=== PATIENT | female | born 1990 | race Two or more races ===

== ENCOUNTER 2018-10-01 05:30 | Inpatient (IN) | payer MEDICAID ==
[~2018-10-01] VITALS: Ht 153.7 cm; Wt 79.0 kg
[2018-10-01 06:06] VITALS: BP 124/83; PULSE 87; RESP 16
[2018-10-01] MEDS ORDERED: PREN-19 PO (06:08)
[2018-10-01] MEDS ORDERED: CALC600T24 PO (06:08)
[2018-10-01] MEDS ORDERED: FERR134T PO (06:08)
[2018-10-01] MEDS ORDERED: LACTATED RINGER'S 1,000 ML IV SCH (08:02)
[2018-10-01] MEDS ORDERED: MISOPROSTOL 200 MCG TAB PR PRN (08:30)
[2018-10-01] MEDS ORDERED: OXYTOCIN 30 UNITS/LR 500 ML IV SCH ×3 (08:30)
[2018-10-01] MEDS ORDERED: OXYTOCIN 30 UNITS/LR 500 ML IV PRN (08:30)
[2018-10-01] MEDS ORDERED: METHYLERGONOVINE 0.2 MG INJ IM PRN (08:30)
[2018-10-01] MEDS ORDERED: CARBOPROST 250 MCG INJ IM PRN (08:30)
[2018-10-01] MEDS ORDERED: BUTORPHANOL 1 MG INJ IV PRN (08:30)
[2018-10-01] MEDS ORDERED: LIDOCAINE 1% (MPF) 30 ML INJ INJ PRN (08:30)
[2018-10-01] MEDS: BUTORPHANOL 2 MG INJ IV PRN (13:47)
--- NOTE | 2018-10-01 15:20 | PREAC ---
Date/Time of Note Date/Time of Note DATE: 10/01/18 TIME: 15: Anesthesia Eval and Record Evaluation Time Pre-Procedure Interview DATE: 10/01/18 TIME: 15:19 Age 28 Sex female NPO: 8 hrs Preoperative diagnosis iup at term Planned procedure labor epidural Past Medical History Past Medical History: None Surgery & Anesthesia Issues No known issue Meds Anticoagulation: No Beta Keshawn within 24 hr: No Reason Beta Keshawn not given: Pt. not on B-Keshawn Reported Medications Vit #76/Iron,Carb/FA (Prenatabs Rx Tablet) 1 Each Tablet, 1 EACH PO DAILY, TAB 10/01/18 Ferrous Sulfate (Iron) 134 Mg Tablet, 134 MG PO DAILY, TAB 10/01/18 Calcium Carbonate* (Calcium Carbonate*) 600 MG Ca Tab, 600 MG PO DAILY, TAB 10/01/18 Current Medications Lactated Ringer's 1,000 ml @ 125 mls/hr Q8H IV Last administered on 10/01/18at 09:52; Admin Dose 125 MLS/HR; Start 10/01/18 at 08:02 Butorphanol Tartrate (Stadol) 1 mg Q2H PRN IV .PAIN; Start 10/01/18 at 08:30 Butorphanol Tartrate (Stadol) 2 mg Q2H PRN IV .PAIN Last administered on 10/01/18at 13:47; Admin Dose 2 MG; Start 10/01/18 at 08:30 Lidocaine (Xylocaine 1% (Mpf)) 30 ml ONCE PRN INJ .EPISIOTOMY; Start 10/01/18 at 08:30 Oxytocin/Lactated Ringer's 500 ml @ 500 mls/hr ONCE POST IV ; Start 10/01/18 at 08:30 Oxytocin/Lactated Ringer's 500 ml @ 125 mls/hr POST IV ; Start 10/01/18 at 08:30 Oxytocin/Lactated Ringer's 500 ml @ 0 mls/hr ONCE PRN IV .VAGINAL BLEEDING; Start 10/01/18 at 08:30 Methylergonovine Maleate (Methergine) 0.2 mg ONCE PRN IM .VAGINAL BLEEDING; Start 10/01/18 at 08:30 Carboprost Tromethamine (Hemabate) 250 mcg ONCE PRN IM .VAGINAL BLEEDING; Start 10/01/18 at 08:30 Misoprostol (Cytotec) 1,000 mcg ONCE PRN CA .VAGINAL BLEEDING; Start 10/01/18 at 08:30 Oxytocin/Lactated Ringer's 500 ml @ 0 mls/hr FOR AUGMENTATION IV Last administered on 10/01/18at 09:54; Admin Dose 1 MLS/HR; Start 10/01/18 at 08:30 Meds reviewed: Yes Allergies Coded Allergies: No Known Allergy (Unverified , 10/01/18) Allergies Reviewed: Yes Labs/Studies Labs Reviewed: Reviewed by anesthesiologist Result Diagram: 10/01/18 0935 Laboratory Tests 10/01/18 09:35 Blood Bank Test 10/01/18 09:35 Antibody Screen NEGATIVE Blood Type B POSITIVE Rh Immune Globulin Candidate NO test: Positive Pre-procedure Exam Last vitals Vital Signs Date Temp Pulse Resp B/P (MAP) Pulse Ox O2 O2 Flow FiO2 Time Delivery Rate 10/01/18 98.4 87 16 124/83 Room Air 06:06 (97) Airway: Adequate mouth opening, Adequate thyromental dist Mallampati: Mallampati I Teeth: Normal Lung: Normal Heart: Normal ASA Physical Status ASA physical status: 2 Emergency: None Planned Anesthetic Neuraxial: Epidural Planned Pain Management Parenteral pain med Pre-operative Attestations Prior to commencing anesthesia and surgery, the patient was re-evaluated, there was verification of: *The patient's identity *The results of appropriate recent lab work and preoperative vital signs *The above evaluation not changing prior to induction *Anesthetic plan, risk benefits, alternative and complications discussed with patient/family; questions answered; patient/family understands, accepts and wishes to proceed. MELANIE GARCIA Oct 01, 2018 15:20
[2018-10-01] MEDS ORDERED: FENTAnyl 50 MCG/ML VIAL ONE (15:22)
[2018-10-01] MEDS ORDERED: ROPIVACAINE 0.2% 100 ML ONE (15:22)
[2018-10-01] MEDS ORDERED: ONDANSETRON 4 MG INJ IV PRN (15:30)
[2018-10-01] MEDS ORDERED: NALOXONE (0.4 MG/ML) INJ IV PRN (15:30)
[2018-10-01] MEDS ORDERED: DIPHENHYDRAMINE 50 MG INJ IV PRN (15:30)
[2018-10-01] MEDS ORDERED: FENTAnyl 2MCG/ML-ROPIV 0.2% 100 ML BAG EPI SCH (15:30)
--- NOTE | 2018-10-01 17:42 | PREOPHP ---
DATE OF ADMISSION: 10/01/2018 HISTORY OF PRESENT ILLNESS: Ms. Marlon Bowling is a 28-year-old 1, para 0, EDC of 10/01/2018, intrauterine at 39 weeks and 6 days gestational age, was admitted early this morning for p remature rupture of membranes. She reports of leaking fluid since early this morning approximately 2 :00 a.m. She denies any vaginal bleeding. She denies any headache, nausea, vomiting, shortness of b reath or visual changes. Her vital signs are stable. Her care took place with Dr. Sandoval. PAST MEDICAL HISTORY: None. MEDICATIONS: vitamins. PAST SURGICAL HISTORY: None. OBSTETRIC HISTORY: Prima . GYNECOLOGIC HISTORY: 10, regular 3 to 4 days. Denies any sexually transmitted disease. Sexually ac tive with 1 partner. SOCIAL HISTORY: Denies any smoking, drugs or alcohol. FAMILY HISTORY: None. REVIEW OF SYSTEMS: All within normal except history of present illness. PHYSICAL EXAMINATION: HEENT: Within normal. LUNGS: CTA. CARDIOVASCULAR: S1, S2. Regular rate, rhythm. ABDOMEN: Gravid, nontender. Negative CVA bilateral. EXTREMITIES: Negative edema. No calf tenderness. PELVIC: Vaginal exam: 1 to 2 cm, 80% effaced, -2 station. heart tracing category 1. [place]: Irregular contractions. ASSESSMENT: Intrauterine at 39 weeks and 6 days gestational age with premature rupture of membranes, currently on Pitocin for induction. PLAN: Anticipated vaginal delivery. Dictated By: HERNAN CRAIN/HENOK Conf#: [id number] DID#: [id number]
[2018-10-01] MEDS ORDERED: AMPICILLIN 2 GM/NS (PMX) 100 ML IV ONE (22:00)
[2018-10-01] MEDS ORDERED: MINERAL OIL LIGHT 10 ML VIAL TOP PRN (22:00)
[2018-10-02] MEDS ORDERED: AMPICILLIN 1 GM/NS (PMX) 50 ML IV SCH (02:00)
[2018-10-02] MEDS ORDERED: OXYTOCIN 30 UNITS/LR 500 ML IV SCH (02:02)
--- NOTE | 2018-10-02 02:02 | LDN ---
Date/Time of Note Date/Time of Note DATE: 10/02/18 TIME: 02:00 Delivery Summary Weeks of Gestation 40 Placenta Delivered: Spontaneously Meconium: Thick Episiotomy: Yes Laceration repair: rmle and 1st degree vaginal laceration repair with 2-0 and 3-0 chromic Anesthesia type: Epidural Estimated blood loss: 250 Sponge & Needle done & correct: Yes All needle counts correct: Yes Any foreign bodies felt in the: No Infant Delivery Information Sex Sex: male Suctioning Nose & mouth suctioned at garcia: No Delee suction performed: No Umbilical Cord Umbilical cord with: 3 Vessels Cord presentations: no nuchal cord Cord Blood was obtained: Yes Mother & Baby Disposition Disposition Mom transferred to: Other () Baby to NICU: Yes HERNAN FALL MD Oct 02, 2018 02:02
[2018-10-02] MEDS ORDERED: ACETAMINOPHEN 325 MG TAB PO PRN (02:30)
[2018-10-02] MEDS ORDERED: OXYCODONE/ASPIRIN (4.88/325) TAB PO PRN ×2 (02:30)
[2018-10-02] MEDS ORDERED: MISOPROSTOL 200 MCG TAB PR PRN (02:30)
[2018-10-02] MEDS ORDERED: CARBOPROST 250 MCG INJ IM PRN (02:30)
[2018-10-02] MEDS ORDERED: WITCH HAZEL/GLYCERIN PAD PR PRN (02:30)
[2018-10-02] MEDS ORDERED: DIBUCAINE 1% 30 GM OINT TOP PRN (02:30)
[2018-10-02] MEDS ORDERED: METHYLERGONOVINE 0.2 MG INJ IM PRN (02:30)
[2018-10-02] MEDS ORDERED: LANOLIN HPA 1 PKT TOP PRN (02:30)
[2018-10-02] MEDS ORDERED: ONDANSETRON 4 MG INJ IV PRN (02:30)
[2018-10-02] MEDS ORDERED: NACL 0.9% 3 ML SYG IV SCH (02:30)
[2018-10-02] MEDS ORDERED: OXYTOCIN 30 UNITS/LR 500 ML IV PRN (02:30)
[2018-10-02] MEDS ORDERED: BENZOCAINE 20% 56 ML SPRAY TOP PRN (02:30)
[2018-10-02] MEDS: BUTORPHANOL 2 MG INJ IV PRN (02:35)
[2018-10-02 03:30] VITALS: BP 132/74; PULSE 81; RESP 18
[2018-10-02] MEDS: IBUPROFEN 600 MG TAB PO SCH ×3 (05:37→18:58)
[2018-10-02 08:00] VITALS: BP 139/76; PULSE 94; RESP 16
[2018-10-02] MEDS: SENNA/DOCUSATE NA (8.6MG/50MG) TAB PO SCH ×2 (09:59→21:25)
[2018-10-02 12:00] VITALS: BP 119/66; PULSE 88; RESP 18
[2018-10-02 16:04] VITALS: BP 128/75; PULSE 96; RESP 17
[2018-10-02 19:30] VITALS: BP 131/82; PULSE 85; RESP 18
[2018-10-03] MEDS: IBUPROFEN 600 MG TAB PO SCH ×4 (00:14→17:33)
[2018-10-03 05:30] VITALS: BP 114/57; PULSE 83
[2018-10-03 08:28] VITALS: BP 123/78; PULSE 85; RESP 18
[2018-10-03] MEDS: SENNA/DOCUSATE NA (8.6MG/50MG) TAB PO SCH ×2 (10:39→20:22)
[2018-10-03 14:00] VITALS: BP 135/91; PULSE 93; RESP 18
[2018-10-03 20:00] VITALS: BP 141/81; PULSE 99; RESP 19
--- NOTE | 2018-10-03 23:33 | PD.PPDC ---
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
[2018-10-04] MEDS: IBUPROFEN 600 MG TAB PO SCH ×5 (00:25→18:59)
[2018-10-04 03:42] VITALS: BP 122/71; PULSE 85; RESP 17
[2018-10-04 08:00] VITALS: BP 131/71; PULSE 87; RESP 18
[2018-10-04] MEDS: SENNA/DOCUSATE NA (8.6MG/50MG) TAB PO SCH (09:39)
[2018-10-04 16:00] VITALS: BP 135/75; PULSE 61; RESP 18
--- NOTE | 2018-10-05 11:12 | PAC ---
Date/Time of Note Date/Time of Note DATE: 10/05/18 TIME: 11:12 Post-Anesthesia Notes Post-Anesthesia Note Last documented vital signs Vital Signs Date Temp Pulse Resp B/P (MAP) Pulse Ox O2 O2 Flow FiO2 Time Delivery Rate 10/04/18 99.1 61 18 135/75 Room Air 16:00 (95) 10/03/18 99 14:00 Activity: WNL Respiratory function: WNL Cardiovascular function: WNL Mental status: Baseline Pain reasonably controlled: Yes Hydration appropriate: Yes Nausea/Vomiting absent: Yes MELANIE GARCIA Oct 05, 2018 11:12
== END 2018-10-04 19:00 | disposition home or self-care (01) | DRG 807 ==
LOC: L-D 05:30 → OBT 05:30 → L-D 08:09 → PP1 10-02 03:31
PROVIDERS: ADMIT Obstetrics & Gynecology; ATTEND Obstetrics & Gynecology
PROC: 3E033VJ Introduction of Other Hormone into Peripheral Vein, Percutaneous Approach (ICD-10-PCS; 2018-10-01)
PROC: 10E0XZZ Delivery of Products of Conception, External Approach (ICD-10-PCS; principal; 2018-10-02)
PROC: 0HQ9XZZ Repair Perineum Skin, External Approach (ICD-10-PCS; 2018-10-02)
DX: O70.0 First degree perineal laceration during delivery (principal); Z37.0 Single live birth; Z3A.39 39 weeks gestation of pregnancy
CPT/HCPCS: 36415; 36600; 62319; 76815; 76818; 81001; 81003; 82803; 84112; 85014; 85018; 85025; 85610; 85730; 86592; 86850; 86900; 86901; 99464; G0463; J0290; J0595; J2590; J2795; J3010; J7120